=== PATIENT | male | born 1970 | race Caucasian/White ===

== ENCOUNTER 2018-02-16 18:22 | Emergency (ER) | payer OTHER ==
[~2018-02-16] VITALS: Ht 193 cm; Wt 86.2 kg
[2018-02-16 18:34] VITALS: BP 119/66; Ht 193 cm; Wt 86.2 kg
== END 2018-02-16 19:34 | disposition home or self-care (01) ==
LOC: ED 18:22
DX: L23.7 Allergic contact dermatitis due to plants, except food (principal)
CPT/HCPCS: J2930